=== PATIENT | female | born 1990 | race Caucasian/White ===

== ENCOUNTER 2021-05-15 02:32 | Emergency (ER) | payer OTHER, SELFPAY ==
[2021-05-15 02:52] VITALS: BP 142/86; PULSE 92; RESP 16; TEMP 36.9; O2SAT 96; BMI 32.3
--- NOTE | 2021-05-15 03:01 | ED.SKABFB ---
HPI - Skin/Abscess/Foreign Bdy General Chief complaint: Skin/Abscess/Foreign Body Stated complaint: WEAK/NAUSEA Time Seen by Provider: 05/15/21 02:48 Source: patient Mode of arrival: Ambulatory History of Present Illness HPI narrative: 30-year-old female who is here for evaluation of weakness and nausea and generally not feeling very well. Patient states that a couple days ago she noticed a red evelyn in her right lower abdomen. She thought it was a pimple. She tried to pop it but she was unable to express anything out of it. Yesterday she went to a outside walk-in clinic. Was placed on amoxicillin. Since that time she has generally not felt very well. No fevers. She was concerned about sepsis. Related Data Allergies Allergy/AdvReac Type Severity Reaction Status Date / Time No Known Drug Allergies Allergy Verified 05/15/21 03:10 Review of Systems Review of Systems ROS Unobtainable: All systems reviewed & are unremarkable except as noted in HPI and below Patient History Medical History Vertigo Social History Smoking Status: Never smoker Smoking Status: Never smoker alcohol intake frequency: a few times a month Substance Use Type: does not use Exam Initial Vital Signs Initial Vital Signs: Vital Signs Temperature 98.5 F 05/15/21 02:52 Pulse Rate 92 H 05/15/21 02:52 Respiratory Rate 16 05/15/21 02:52 Blood Pressure 142/86 H 05/15/21 02:52 Pulse Oximetry 96 05/15/21 02:52 Const General: cooperative and comfortable HENMT Head: normal to inspection and normocephalic Resp Effort & Inspection: normal respiratory effort Auscultation: clear to auscultation bilaterally Cardio Rate: regular rate Rhythm: regular rhythm GI Palpation: soft and No tender Skin Other: Patient with a small area of redness approximately 2 cm x 3 cm in her right lower abdomen has consistent with cellulitis for which she is being treated with antibiotics Neuro General: patient alert, patient awake and patient oriented x3 Extrem General: normal to inspection and capillary refill normal Psych Appearance: grossly normal and well kempt Course Orders Ordered: Discontinued Medications Ondansetron HCl (Ondansetron 4 Mg Odt Prepack) 1 bottle MISC SEEINSTR ONE Stop: 03/06/22 03:02 Last Admin: 05/15/21 03:10 Dose: 1 bottle Documented by: Vital Signs Vital signs: Vital Signs - 8 hr 05/15/21 02:52 Temperature 98.5 F Pulse Rate 92 H Respiratory Rate 16 Blood Pressure 142/86 H Pulse Oximetry 96 MDM - Skin/Abscess/Foreign Bdy MDM Narrative Medical decision making narrative: Patient is afebrile. Tachycardic. Has a small area of erythema on her right lower abdomen consistent with a cellulitis for which she has taken antibiotics. I have low suspicion for sepsis given her presentation. I suspect that she is feeling poorly because of the amoxicillin that she is taking. This is not an allergic reaction. I did discuss this with her. Advised she continue to take the antibiotics as directed. She was given Zofran for the nausea. She was given return precautions. She expressed understanding and agreement. Discharge Plan Departure Patient Disposition: Home Clinical Impression: Nausea Instructions: DI for Nausea -- Adult Activity Restrictions/Additional Instructions: I do recommend that you continue to take the antibiotics because is important to treat the small skin infection had under abdomen. Contact your primary doctor for a follow-up. Return to the emergency department for any new or worsening symptoms.
--- NOTE | 2021-05-15 03:03 | PC.NURSE ---
see triage note, pt states was tx yesterday and feels worse today
[2021-05-15] MEDS: ONDANSETRON 4 MG ODT PREPACK 1 BOTTLE MISC (03:10)
== END 2021-05-15 03:11 | disposition home or self-care (01) ==
PROVIDERS: Emergency Provider Emergency Medicine
DX: R11.0 Nausea (principal)
CPT/HCPCS: 99281; 99282

== ENCOUNTER 2021-11-02 08:46 | Emergency (ER) | payer OTHER, SELFPAY ==
[2021-11-02] VITALS (7 sets, daily range): BP systolic 105–119; BP diastolic 57–63; PULSE 100–126; RESP 17–20; TEMP 36.9; O2SAT 97–99; BMI 30.7
[2021-11-02 09:25] LABS: Appearance Urine UA SL CLOUDY; Bilirubin Urine UA 1+ (NEGATIVE); Color Urine UA YELLOW; Glucose Urine UA NEGATIVE (Negative); Ketones Urine UA 2+ (NEGATIVE); Leukocyte Esterase Urine UA 1+ (NEGATIVE); Nitrite Urine UA NEGATIVE (Negative); Occult Blood Urine UA 3+ (Negative); Protein Urine UA 2+ (Negative); Specific Gravity Urine UA >=1.030 (1.000-1.035); Urobilinogen Urine UA 0.2 E.U./dL (0.2)
[2021-11-02 09:26] LABS: pH Urine UA 5.5 (4.5-8.0)
[2021-11-02 09:27] LABS: Pregnancy Test Urine Negative (Negative)
[2021-11-02 09:31] LABS: Amorphous Sediment Urine 1+; Bacteria Urine Many (>30); Culture Indicated Urine Specimen Cultured; Ictotest Urine Negative (Negative); Mucus Urine 2+ (Negative); RBC Urine 1-5/HPF (0-5/HPF); Squamous Epithelial Cell Urine 1-5 /HPF (0-5/HPF); WBC Urine 1-5/HPF (0-5/HPF)
--- NOTE | 2021-11-02 10:58 | ED_ITS ---
HPI - Abdominal Pain General Chief Complaint: Abdominal Pain Stated Complaint: NVD ABD pain Time Seen by Provider: 11/02/21 10:37 Source: patient Mode of arrival: Ambulatory History of Present Illness HPI narrative: Patient is a 31-year-old healthy female who presents with nausea vomiting which started last night. She said she was feeling well yesterday until around 6:00 p.m. where she has been vomiting nonstop unable to sleep. She is noted to be tachycardic here in the ED. But does not have any fever. She has some lower abdominal pain. She denies any back pain. No fever or chills. sHe with the who also has some vomiting. Related Data Previous Rx's Medication Instructions Recorded ondansetron 4 mg disintegrating 4 mg PO Q8H PRN nausea and 11/02/21 tablet vomiting #10 tabs Allergies Allergy/AdvReac Type Severity Reaction Status Date / Time No Known Drug Allergies Allergy Verified 05/15/21 03:10 Review of Systems Review of Systems Narrative: GENERAL: Denies chills, fatigue, malaise, fever, sweats, travel HEENT: Denies sinus pain, ear pain, sore throat, difficulty swallowing, neck pain RESPIRATORY: Denies dyspnea, cough, wheezing, hemoptysis, sputum. CARDIOVASCULAR: Denies chest pain, palpitations, orthopnea, edema GASTROINTESTINAL: Denies nausea, vomiting, abdominal pain, diarrhea, constipation, melena. : See HPI MUSCULOSKELETAL: Denies weakness, joint pain, or bony pain SKIN: No rash, no erythema, no pruritus NEUROLOGIC: Denies weakness, dizziness, headache, numbness, change in speech, confusion PSYCHIATRIC: No concerning psychosocial issues. 12 point review of systems is negative except for those stated above and HPI Patient History Medical History Vertigo Social History Smoking Status: Never smoker Smoking Status: Never smoker alcohol intake frequency: a few times a month Substance Use Type: does not use Exam Initial Vital Signs Initial Vital Signs: Vital Signs Temperature 98.4 F 11/02/21 09:08 Pulse Rate 125 H 11/02/21 09:08 Respiratory Rate 18 11/02/21 09:08 Blood Pressure 119/61 11/02/21 09:08 Pulse Oximetry 99 11/02/21 09:08 Oxygen Delivery Method 11/02/21 09:08 GENERAL: Alert pleasant 31-year-old and in no acute distress. HEENT: Head atraumatic,EOMI, pupils reactive, face symmetric, moist mucous membranes CARDIOVASCULAR: Tachycardic regular no murmur RESPIRATORY: Breath sounds equal bilaterally, no wheezes rales or rhonchi. ABDOMEN: Soft, nontender. Normoactive bowel sounds all 4 quadrants. No guardin g or rebound. : No flank pain EXTREMITIES: Normal range of motion, no clubbing or edema. Neurovascularly intact NEUROLOGICAL: Alert and oriented x4. SKIN: Warm, dry, no laceration, no petechiae, no rashes or lesions. Course Orders Ordered: ED Orders 11/02/21 11:18 COVID19 -Nasal RAPID/Pre-Proc Stat Discontinued Medications Sodium Chloride (Normal Saline 0.9%) 1,000 mls @ 1,000 mls/hr IV BOLUS ONE Stop: 11/02/21 11:57 Last Infusion: 11/02/21 12:03 Dose: 0 mls/hr Documented By: Infusion: 11/02/21 12:02 Dose: 0 mls/hr Documented By: Admin: 11/02/21 11:16 Dose: 1,000 mls/hr Documented By: KEVIN Ondansetron HCl (Ondansetron 4 Mg/2 Ml Inj) 4 mg IV NOW ONE Stop: 11/02/21 10:59 Last Admin: 11/02/21 11:15 Dose: 4 mg Documented By: KEVIN Vital Signs Vital signs: Vital Signs - 8 hr 11/02/21 11:37 11/02/21 11:50 11/02/21 12:14 Pulse Rate 110 H 100 H 105 H Respiratory Rate 18 17 17 Blood Pressure 107/57 L 113/60 Pulse Oximetry 98 98 Oxygen Delivery Method Room Air MDM - Abdominal Pain Lab Data Result diagrams: 11/02/21 09:32 11/02/21 09:32 Labs: Lab Results 11/02/21 11/02/21 11/02/21 Range/Units 09:03 09:03 09:32 WBC 11.1 H (4.5-11.0) X10^3/uL RBC 5.01 (4.0-5.2) X10^6/uL Hgb 15.8 (12.0-16.0) g/dL Hct 45.1 (36-46) % MCV 90.0 (80-100) fL MCH 31.5 (26-34) PG MCHC 35.0 (30-36) % RDW 12.4 (11.6-14.8) % Plt Count 306 (150-400) X10^3/uL Neut % (Auto) 90.6 H (50-75) % Lymph % (Auto) 4.1 L (25-40) % [place] % (Auto) 5.2 (3-14) % Eos % (Auto) 0.0 L (2-4) % Baso % (Auto) 0.1 (0-2) % Neut # (Auto) 67209 H (1196-8031) /uL Lymph # (Auto) 500 L (3386-6695) /uL [place] # (Auto) 600 (0-900) /uL Eos # (Auto) 0 (0-450) /uL Baso # (Auto) 0 (0-100) /uL Sodium (137-145) mmol/L Potassium (3.4-5.1) mmol/L Chloride (98-107) mmol/L Carbon Dioxide (22-32) mmol/L BUN (7-17) mg/dL Creatinine (0.52-1.04) mg/dL Estimated GFR (>60) mL/min BUN/Creatinine Ratio (6-22) Glucose (70-100) mg/dL Calcium (8.4-10.2) mg/dL Total Bilirubin (0.2-1.3) mg/dL AST (14-36) IU/L ALT (<35) IU/L Alkaline Phosphatase (38-126) U/L Total Protein (6.3-8.2) g/dL Albumin (3.5-5.0) g/dL Globulin (1.7-4.1) g/dL Albumin/Globulin Ratio (1.0-2.8) Lipase (23-300) U/L Urine Color Yellow Urine Appearance Sl cloudy Urine pH 5.5 (4.5-8.0) Ur Specific [place] >=1.030 H (1.000-1.035) Urine Protein 2+ H (Negative) Urine Glucose (UA) Negative (Negative) g/dL Urine Ketones 2+ H (NEGATIVE) Urine Occult Blood 3+ H (Negative) Urine Nitrate Negative (Negative) Urine Bilirubin 1+ H (NEGATIVE) Ur Bilirubin Confirm Negative (Negative) Urine Urobilinogen 0.2 (0.2) E.U./dL Ur Leukocyte Esterase 1+ H (NEGATIVE) Urine RBC 1-5/hpf (0-5/HPF) Urine WBC 1-5/hpf (0-5/HPF) Ur Squamous Epith Cells 1-5 /hpf (0-5/HPF) Amorphous Sediment 1+ Urine Bacteria Many (>30) H (None) Urine Mucus 2+ H (Negative) Ur Culture Indicated? Specimen cultured Urine Test Negative (Negative) SARS-CoV-2 (PCR) (Negative) 11/02/21 11/02/21 Range/Units 09:32 11:18 WBC (4.5-11.0) X10^3/uL RBC (4.0-5.2) X10^6/uL Hgb (12.0-16.0) g/dL Hct (36-46) % MCV (80-100) fL MCH (26-34) PG MCHC (30-36) % RDW (11.6-14.8) % Plt Count (150-400) X10^3/uL Neut % (Auto) (50-75) % Lymph % (Auto) (25-40) % [place] % (Auto) (3-14) % Eos % (Auto) (2-4) % Baso % (Auto) (0-2) % Neut # (Auto) (2494-8863) /uL Lymph # (Auto) (5026-1182) /uL [place] # (Auto) (0-900) /uL Eos # (Auto) (0-450) /uL Baso # (Auto) (0-100) /uL Sodium 134 L (137-145) mmol/L Potassium 4.0 (3.4-5.1) mmol/L Chloride 103 (98-107) mmol/L Carbon Dioxide 20 L (22-32) mmol/L BUN 23 H (7-17) mg/dL Creatinine 0.82 (0.52-1.04) mg/dL Estimated GFR > 60 (>60) mL/min BUN/Creatinine Ratio 28.0 H (6-22) Glucose 126 H (70-100) mg/dL Calcium 8.9 (8.4-10.2) mg/dL Total Bilirubin 1.3 (0.2-1.3) mg/dL AST 38 H (14-36) IU/L ALT 36 H (<35) IU/L Alkaline Phosphatase 72 (38-126) U/L Total Protein 8.8 H (6.3-8.2) g/dL Albumin 4.8 (3.5-5.0) g/dL Globulin 4.0 (1.7-4.1) g/dL Albumin/Globulin Ratio 1.2 (1.0-2.8) Lipase 35 (23-300) U/L Urine Color Urine Appearance Urine pH (4.5-8.0) Ur Specific [place] (1.000-1.035) Urine Protein (Negative) Urine Glucose (UA) (Negative) g/dL Urine Ketones (NEGATIVE) Urine Occult Blood (Negative) Urine Nitrate (Negative) Urine Bilirubin (NEGATIVE) Ur Bilirubin Confirm (Negative) Urine Urobilinogen (0.2) E.U./dL Ur Leukocyte Esterase (NEGATIVE) Urine RBC (0-5/HPF) Urine WBC (0-5/HPF) Ur Squamous Epith Cells (0-5/HPF) Amorphous Sediment Urine Bacteria (None) Urine Mucus (Negative) Ur Culture Indicated? Urine Test (Negative) SARS-CoV-2 (PCR) Negative (Negative) MDM Narrative Medical decision making narrative: Patient overall is doing much better after IV fluids. Slightly dehydrated. Tolerating oral fluids with Zofran. She has no signs or symptoms of UTI will hold off on antibiotics at this time. Likely a gastroenteritis. Discharge Plan Departure Patient Disposition: Home Clinical Impression: Gastroenteritis Instructions: DI for Viral Gastroenteritis -- Adult Activity Restrictions/Additional Instructions: *You have been diagnosed with gastroenteritis *What to do: Increase fluid intake. Recommend Gatorade or Gatorade like product *Continue to take medications as directed Zofran 4 mg every 8 hours if needed for nausea vomiting--> SENT TO D[facility] *Follow up with your primary care provider in 2-3 days or call [phone] *Return to ER if you should have persistent vomiting increasing abdominal pain or any new, worsening or concerning symptoms Prescriptions: New ondansetron 4 mg tablet,disintegrating 4 mg PO Q8H PRN (Reason: nausea and vomiting) Qty: 10 0RF Referrals: ProviderDuong YEHUDA [Primary Care Provider] - Visit Report Forms: Patient Portal/API
[2021-11-02] MEDS: ONDANSETRON 4 MG/2 ML INJ IV (11:15)
[2021-11-02] MEDS: SODIUM CHLORIDE 0.9% 1,000 ML 1000 ML IV (11:16)
[2021-11-02 11:19] LABS: Add Manual Diff / Slide Review NO; Basophils Absolute Auto 0 /uL (0-100); Basophils Percent Auto 0.1 % (0-2); Eosinophils Absolute Auto 0 /uL (0-450); Hematocrit 45.1 % (36-46); Hemoglobin 15.8 g/dL (12.0-16.0); Lymphocytes Absolute Auto 500 /uL (1100-4500); Lymphocytes Percent Auto 4.1 % (25-40); Mean Corpuscular Hemoglobin 31.5 PG (26-34); Monocytes Absolute Auto 600 /uL (0-900); Monocytes Percent Auto 5.2 % (3-14); Neutrophils Absolute Auto 10000 /uL (1500-7000); Neutrophils Percent Auto 90.6 % (50-75); Platelet Count 306 X10^3/uL (150-400); Red Blood Cell Count 5.01 X10^6/uL (4.0-5.2); Red Cell Distribution Width 12.4 % (11.6-14.8); White Blood Cell Count 11.1 X10^3/uL (4.5-11.0)
[2021-11-02 11:24] LABS: Alanine Aminotransferase 36 IU/L (<35); Albumin 4.8 g/dL (3.5-5.0); Albumin Globulin Ratio 1.2 (1.0-2.8); Alkaline Phosphatase 72 U/L (38-126); Aspartate Aminotransferase 38 IU/L (14-36); Bilirubin Total 1.3 mg/dL (0.2-1.3); Blood Urea Nitrogen 23 mg/dL (7-17); Calcium 8.9 mg/dL (8.4-10.2); Carbon Dioxide 20 mmol/L (22-32); Chloride 103 mmol/L (98-107); Estimated Glomerular Filt Rate > 60 mL/min (>60); Glucose 126 mg/dL (70-100); HEMOLYSIS 26 (0-50); Lipase 35 U/L (23-300); Sodium 134 mmol/L (137-145); Total Protein 8.8 g/dL (6.3-8.2)
[2021-11-02 11:44] LABS: COVID19 -Nasal RAPID Negative (Negative)
== END 2021-11-02 12:19 | disposition home or self-care (01) ==
PROVIDERS: Emergency Provider Emergency Medicine
DX: K52.9 Noninfective gastroenteritis and colitis, unspecified (principal); E86.0 Dehydration; R00.0 Tachycardia, unspecified; Z20.822 Contact with and (suspected) exposure to COVID-19
CPT/HCPCS: 36415; 80053; 81001; 81025; 83690; 85025; 87077; 87086; 87186; 87635; 96361; 96374; 99284; C9803; J2405

== ENCOUNTER 2023-05-21 11:34 | Emergency (ER) | payer OTHER, SELFPAY ==
[2023-05-21 11:39] VITALS: BP 115/76; PULSE 61; RESP 18; TEMP 36.1; O2SAT 98; BMI 30.7
--- NOTE | 2023-05-21 12:15 | ED_ITS ---
HPI - Back Pain/Injury <Brendan Chacko PA-C - Last Filed: 05/21/23 13:47> General Chief Complaint: Back Pain/Injury Stated Complaint: lower back pain Time Seen by Provider: 05/21/23 11:56 Source: patient History of Present Illness HPI Narrative: 32-year-old female presents to the ED with 2 days of lower back pain. Patient states that she awoke yesterday feeling some back pain and muscle stiffness in the lower back. Patient denies numbness, tingling, weakness. Denies urinary incontinence, urinary hesitancy, bowel incontinence. No trauma. Patient is currently taking amoxicillin for a dental infection, however patient paused her medications for a day due to suspicion that it might be related to her current symptoms. Patient does have a history of back pain, however this episode is more acute. Related Data Previous Rx's Medication Instructions Recorded ondansetron 4 mg disintegrating 4 mg PO Q8H PRN nausea and 11/02/21 tablet vomiting #10 tabs cyclobenzaprine 10 mg tablet 10 mg PO TID PRN muscle spasm #14 05/21/23 tabs Allergies Allergy/AdvReac Type Severity Reaction Status Date / Time No Known Drug Allergies Allergy Verified 05/15/21 03:10 Review of Systems <Brendan Chacko PA-C - Last Filed: 05/21/23 13:47> Constitutional Constitutional: Denies chills, Denies fatigue, Denies fever(s), Denies frequent falls, Denies lethargy and Denies weakness Eyes Eyes: Denies change in vision, Denies eye discharge, Denies irritation and Denies loss of vision ENT Ears, Nose, Mouth, and Throat: Denies change in voice, Denies dizziness, Denies neck pain, Denies sore throat and Denies throat swelling Cardiovascular Cardiovascular: Denies chest pain, Denies irregular heart rhythm, Denies lightheadedness, Denies palpitations, Denies dyspnea, Denies dyspnea on exertion and Denies orthopnea Respiratory Respiratory: Denies cough, Denies dyspnea, Denies dyspnea on exertion and Denies wheezing Gastrointestinal Gastrointestinal: Denies abdominal pain, Denies change in bowel habits, Denies diarrhea, Denies nausea and Denies vomiting Musculoskeletal Musculoskeletal: Reports back pain, Denies neck pain and Denies numbness Integumentary/Breasts Skin/Breast: Denies pruritus, Denies erythema, Denies rash and Denies wounds Neurologic Neurologic: Denies behavioral changes, Denies confusion, Denies dizziness, Denies frequent falls, Denies loss of vision, Denies numbness and Denies weakness Psychiatric Psychiatric: Denies anxiety, Denies behavioral changes, Denies confusion, Denies depression, Denies homicidal ideation and Denies suicidal ideation Endocrine Endocrine: Denies fatigue, Denies flushing and Denies palpitations Hematologic/Lymphatic Hematologic/Lymphatic: Denies easy bruising Allergic/Immunologic Allergic/Immunologic: Denies urticaria, Denies throat swelling and Denies wheezing Patient History <Brendan Chacko PA-C - Last Filed: 05/21/23 13:47> Medical History Vertigo Social History Smoking Status: Never smoker Smoking Status: Never smoker alcohol intake frequency: a few times a month Substance Use Type: does not use Exam <Brendan Chacko PA-C - Last Filed: 05/21/23 13:47> Narrative Exam Narrative: Const General:?cooperative, healthy appearing and comfortable [facility] Head:?normal to inspection Ears:?hearing grossly normal bilaterally Nose:?external nose normal Face and sinus:?normal facial exam and sinuses nontender Mouth:?oral mucosae normal Throat:?posterior oropharynx normal Eyes General:?appearance normal, both eyes and all related structures Neck Neck:?normal visual inspection and no lymphadenopathy noted Resp Effort & Inspection:?normal respiratory effort Auscultation:?clear to auscultation bilaterally Cardio Rate:?regular rate Rhythm:?regular rhythm Musculoskeletal No midline tenderness to palpation. No paraspinal tenderness to palpation. There is full range of motion. Strength and sensation is intact. Gait is normal. Patient is neurovascularly intact. Neuro General:?patient alert, patient awake and patient oriented x3 Initial Vital Signs Initial Vital Signs: Vital Signs Temperature 97 F L 05/21/23 11:39 Pulse Rate 61 05/21/23 11:39 Respiratory Rate 18 05/21/23 11:39 Blood Pressure 115/76 05/21/23 11:39 Pulse Oximetry 98 05/21/23 11:39 Oxygen Delivery Method Room Air 05/21/23 11:39 <DO Macie Cruz Last Filed: 05/22/23 08:29> Initial Vital Signs Initial Vital Signs: Vital Signs Temperature 97 F L 05/21/23 11:39 Pulse Rate 61 05/21/23 11:39 Respiratory Rate 18 05/21/23 11:39 Blood Pressure 115/76 05/21/23 11:39 Pulse Oximetry 98 05/21/23 11:39 Oxygen Delivery Method Room Air 05/21/23 11:39 Course <Brendan Chacko PA-C - Last Filed: 05/21/23 13:47> Orders Ordered: Discontinued Medications Cyclobenzaprine HCl (Cyclobenzaprine 10 Mg Tablet) 10 mg PO NOW ONE Stop: 05/21/23 12:15 Last Admin: 05/21/23 12:19 Dose: 10 mg Documented By: FIORELLA Ketorolac Tromethamine (Ketorolac 30 Mg/Ml Vial) 30 mg IM NOW ONE Stop: 05/21/23 12:15 Last Admin: 05/21/23 12:19 Dose: 30 mg Documented By: FIORELLA Vital Signs Vital signs: Vital Signs - 8 hr 05/21/23 11:39 05/21/23 13:09 Temperature 97 F L Pulse Rate 61 68 Respiratory Rate 18 12 Blood Pressure 115/76 131/62 Pulse Oximetry 98 100 Oxygen Delivery Method Room Air Room Air <Sienna Munoz DO - Last Filed: 05/22/23 08:29> Orders Ordered: Discontinued Medications Cyclobenzaprine HCl (Cyclobenzaprine 10 Mg Tablet) 10 mg PO NOW ONE Stop: 05/21/23 12:15 Last Admin: 05/21/23 12:19 Dose: 10 mg Documented By: FIORELLA Ketorolac Tromethamine (Ketorolac 30 Mg/Ml Vial) 30 mg IM NOW ONE Stop: 05/21/23 12:15 Last Admin: 05/21/23 12:19 Dose: 30 mg Documented By: FIORELLA Vital Signs Vital signs: Vital Signs - 8 hr 05/21/23 11:39 05/21/23 13:09 Temperature 97 F L Pulse Rate 61 68 Respiratory Rate 18 12 Blood Pressure 115/76 131/62 Pulse Oximetry 98 100 Oxygen Delivery Method Room Air Room Air MDM - Back Pain/Injury <DARLENE Baig Last Filed: 05/21/23 13:47> Lab Data Labs: Lab Results 05/21/23 Range/Units 12:00 Urine RBC None seen (0-5/HPF) Urine WBC 1-5/hpf (0-5/HPF) Ur Squamous Epith Cells 1-5 /hpf (0-5/HPF) Urine Bacteria Occasional (0-1) (None) Urine Mucus 1+ H (Negative) Ur Culture Indicated? Specimen cultured Vol Urine Centrifuged 10ml (spun) Point of Care Testing Test Results Negative Urine Dip Bedside Urine Glucose Negative Bedside Urine Bilirubin - Negative Bedside Urine Ketone - Negative Urine Specific [place] 1.015 Bedside Urine Occult Blood - Negative Bedside Urine pH 6.5 Bedside Urine Protein - Negative Bedside Urine Urobilinogen - Negative Bedside Urine Nitrite - Negative Bedside Urine Leukocytes + 70 Esterase MDM Narrative Medical decision making narrative: 32-year-old female presents to the ED with 2 days of lower back pain. Given history and physical exam, symptoms are most consistent with a musculoskeletal sprain/strain of the back. Will treat with IM ketorolac and Flexeril. Will also check urine to rule out UTI/pyelonephritis. UA negative for UTI. Prescribed Flexeril. Recommend continued use of ibuprofen, Tylenol at home for pain relief. Recommend follow-up with PCP as soon as possible. ED return precautions discussed with patient. Patient verbalized understanding. Medical records reviewed: Yes <Sienna Munoz DO - Last Filed: 05/22/23 08:29> Lab Data Labs: Lab Results 05/21/23 Range/Units 12:00 Urine RBC None seen (0-5/HPF) Urine WBC 1-5/hpf (0-5/HPF) Ur Squamous Epith Cells 1-5 /hpf (0-5/HPF) Urine Bacteria Occasional (0-1) (None) Urine Mucus 1+ H (Negative) Ur Culture Indicated? Specimen cultured Vol Urine Centrifuged 10ml (spun) Point of Care Testing Test Results Negative Urine Dip Bedside Urine Glucose Negative Bedside Urine Bilirubin - Negative Bedside Urine Ketone - Negative Urine Specific [place] 1.015 Bedside Urine Occult Blood - Negative Bedside Urine pH 6.5 Bedside Urine Protein - Negative Bedside Urine Urobilinogen - Negative Bedside Urine Nitrite - Negative Bedside Urine Leukocytes + 70 Esterase Discharge Plan Departure Patient Disposition: Home Clinical Impression: Acute low back pain Instructions: DI for Back Strain or Sprain Activity Restrictions/Additional Instructions: You were evaluated in the ED today for lower back pain. Your symptoms are most consistent with a musculoskeletal sprain/strain of the lower back. You were gi gisella a injection of Toradol and a dose of cyclobenzaprine which is a muscle relaxant. You were also being prescribed a muscle relaxant to continue taking at home as needed. You may also take 800 mg of ibuprofen every 8 hours with food for pain. You may also take 1000 mg of Tylenol every 8 hours for pain. You may try the [id number] lidocaine patches. Your urine did not show a urinary tract infection. It is highly unlikely that the amoxicillin has any relation to the back pain that you are experiencing, and therefore advisable for you to resume taking the amoxicillin for the dental infection. Please follow-up with your PCP as soon as possible for further evaluation and physical therapy referrals. Return to the ED if you have worsening symptoms, numbness, tingling, urinary difficulties. Prescriptions: New cyclobenzaprine 10 mg tablet 10 mg PO TID PRN (Reason: muscle spasm) Qty: 14 0RF No Action ondansetron 4 mg tablet,disintegrating 4 mg PO Q8H PRN (Reason: nausea and vomiting) Qty: 10 0RF Referrals: ProviderDuong [Primary Care Provider] - Stand Alone Forms: Patient Portal/API, Work Release Note ED Sign-out <Sienna Munoz DO - Last Filed: 05/22/23 08:29> Cosign ED Attending Juanjo Attestation: I was immediately available in the department for consultation.
[2023-05-21] MEDS: KETOROLAC 30 MG/ML VIAL IM (12:19)
[2023-05-21] MEDS: CYCLOBENZAPRINE 10 MG TABLET PO (12:19)
[2023-05-21 12:56] LABS: Bacteria Urine Occasional (0-1); RBC Urine None Seen (0-5/HPF); Squamous Epithelial Cell Urine 1-5 /HPF (0-5/HPF); Urine Volume 10mL (spun); WBC Urine 1-5/HPF (0-5/HPF)
[2023-05-21 12:57] LABS: Culture Indicated Urine Specimen Cultured; Mucus Urine 1+ (Negative)
[2023-05-21 13:09] VITALS: BP 131/62; PULSE 68; RESP 12; O2SAT 100
== END 2023-05-21 13:12 | disposition home or self-care (01) ==
PROVIDERS: Emergency Provider Student in an Organized Health Care Education/Training Program
DX: M54.50 Low back pain, unspecified (principal)
CPT/HCPCS: 81003; 81015; 81025; 87086; 99283; J1885